=== PATIENT | female | born 1945 | race Hispanic/Latino ===

== ENCOUNTER 2024-01-23 06:22 | Day surgery (SDC) | payer MEDICARE ==
[~2024-01-23] VITALS: Ht 149.9 cm; Wt 59.9 kg
[2024-01-23] VITALS (11 sets, daily range): BP systolic 130–159; BP diastolic 60–79; PULSE 64–82; RESP 14–18
[~2024-01-23 06:22] MED LIST: 0.9%NACL 1000ML 1,000 ML IV ONE
[2024-01-23] MEDS ORDERED: ASPI-1197 PO (06:43)
[2024-01-23] MEDS ORDERED: VITAMIN D (06:43)
[2024-01-23] MEDS ORDERED: VITAMIN D3 PO (06:44)
[2024-01-23] MEDS ORDERED: PROPOFOL 10 MG/ML 20ML VIAL IV ONE (07:44)
== END 2024-01-23 09:15 | disposition home or self-care (01) ==
LOC: DAH 06:22 → ENDO 06:22
PROVIDERS: ATTEND Internal Medicine Gastroenterology
DX: Z12.11 Encounter for screening for malignant neoplasm of colon (principal); K63.89 Other specified diseases of intestine; Z80.0 Family history of malignant neoplasm of digestive organs; Z79.899 Other long term (current) drug therapy; Z86.010 Personal history of colon polyps; Z79.82 Long term (current) use of aspirin
CPT/HCPCS: J7030 ×2; J2704; A4620; G0105; A4215 ×2; A4223; A7002; A4222; A4221; A4663; A4606; 45378; J3490

== ENCOUNTER → 2024-06-17 | Outpatient (CLI) | payer MEDICARE ==
[~2024-06-17] MED LIST changes: -0.9%NACL 1000ML 1,000 ML IV ONE; +ASPI-1197 PO; +VITAMIN D3 PO
[2024-06-17 16:28] LABS: ALBUMIN 3.9 g/dL (3.5-5.0); BILIRUBIN,TOTAL 0.3 mg/dL (0.2-1.0); CREATININE 0.7 mg/dL (0.5-1.0); POTASSIUM 4.7 mmol/L (3.5-5.1); TOTAL PROTEIN, SERUM 7.6 g/dL (6.0-8.3)
== END | disposition home or self-care (01) ==
LOC: LAB 13:51
PROVIDERS: ATTEND Internal Medicine Cardiovascular Disease
DX: I10 Essential (primary) hypertension (principal)
CPT/HCPCS: 36415; 80053

== ENCOUNTER → 2024-07-13 | Outpatient (CLI) | payer MEDICARE ==
[~2024-07-13] MED LIST changes: +IOHEXOL 350 MG/ML 100ML INFUS..BTL IV ONE; +metoPROLOL tartRATE 1 MG/ML 5ML VIAL IV ONE
== END | disposition home or self-care (01) ==
LOC: RAH 10:12
PROVIDERS: ATTEND Student in an Organized Health Care Education/Training Program
DX: I25.10 Atherosclerotic heart disease of native coronary artery without angina pectoris (principal); R07.9 Chest pain, unspecified
CPT/HCPCS: 75574; J3490; Q9967